=== PATIENT | female | born 1935 | race Caucasian/White ===

== ENCOUNTER 2017-07-08 15:57 | Emergency (ER) | payer OTHER ==
[~2017-07-08] VITALS: Ht 162.6 cm; Wt 67.6 kg
[2017-07-08] MEDS ORDERED: ONDANSETRON 4 MG/2 ML VIAL IV ONE (16:15)
[2017-07-08] MEDS ORDERED: HYDROMORPHONE 1 MG/1 ML DISP.SYRIN IV ONE (16:15)
[2017-07-08] MEDS ORDERED: PROTONIX PO (16:19)
[2017-07-08] MEDS ORDERED: CLOP75TA15 PO (16:19)
[2017-07-08] MEDS ORDERED: CELEXA PO (16:19)
[2017-07-08] MEDS ORDERED: INSULIN (16:19)
[2017-07-08] MEDS ORDERED: FENTANYL CITRATE 100 MCG/2 ML AMPUL IV ONE (16:30)
[2017-07-08] MEDS ORDERED: HYDROMORPHONE 1 MG/1 ML DISP.SYRIN ONE (16:33)
[2017-07-08] MEDS ORDERED: ONDANSETRON 4 MG/2 ML VIAL ONE (16:33)
[2017-07-08 16:41] LABS: BASOPHILS # (AUTO) 0.1 K/uL (0.0-8.0); BASOPHILS % (AUTO) 0.7 % (0.0-2.0); EOSINOPHILS # (AUTO) 0.1 K/uL (0.0-0.7); EOSINOPHILS % (AUTO) 1.6 % (0.0-7.0); HEMATOCRIT 35.9 % (37-47); HEMOGLOBIN 11.7 G/DL (12.0-16.0); LYMPHOCYTES # (AUTO) 1.6 K/UL (0.8-4.8); LYMPHOCYTES % (AUTO) 17.7 % (20.5-51.5); MEAN CORPUSCULAR HGB CONC 33 g/dL (32.0-37.0); MEAN CORPUSCULAR VOLUME 86.3 FL (81.0-99.0); MONOCYTES # (AUTO) 0.6 K/UL (0.1-1.30); MONOCYTES % (AUTO) 6.5 % (0.0-11.0); NEUTROPHILS # (AUTO) 6.9 K/UL (1.8-8.9); NEUTROPHILS % (AUTO) 73.5 % (38.5-71.5); RED BLOOD CELL COUNT(AUTO) 4.16 MIL/UL (4.2-5.4); WHITE BLOOD COUNT (AUTO) 9.3 K/UL (4.0-11.2)
[2017-07-08 16:42] LABS: CARBON DIOXIDE 29 mmol/L (21-32); CHLORIDE 101 mmol/L (98-107); GLUCOSE 131 mg/dL (74-106); PLATELET COUNT (AUTO) 277 K/UL (150-450); POTASSIUM 4.3 mmol/L (3.5-5.1); UREA NITROGEN, BLOOD 24 mg/dL (7-18)
[2017-07-08] MEDS ORDERED: FENTANYL CITRATE 100 MCG/2 ML AMPUL ONE (16:46)
[2017-07-08 16:47] LABS: ALANINE AMINOTRANSFERASE 36 U/L (14-59); ALKALINE PHOSPHATASE 77 U/L (50-136); ASPARTATE AMINOTRANSFERASE 23 U/L (15-37); BILIRUBIN,DIRECT 0.1 mg/dL (0.0-0.2); BILIRUBIN,TOTAL 0.7 mg/dL (0.2-1.0); TOTAL PROTEIN, SERUM 7.7 g/dL (6.4-8.2)
--- NOTE | 2017-07-08 18:50 | NUR ---
mse completed, blue called back . spoke to rep, whom stated pt to go to [facility], dr cornell accepted and [facility] to arrive at approx 1935. presenlty pt has a collie splint placed. pt staed no pain to rt knee area. transfer acknowledgement done.
--- NOTE | 2017-07-08 19:07 | NUR ---
sbar report to alex lieberman.
--- NOTE | 2017-07-08 20:24 | NUR ---
Patient Tranfers to outside Facility Physician: Dr. Calderon Location: [facility], Report given to Eros at 2020
== END 2017-07-08 20:26 | disposition short-term general hospital (02) ==
LOC: ER 15:57
DX: I21.4 Non-ST elevation (NSTEMI) myocardial infarction (principal); S80.02XA Contusion of left knee, initial encounter; S62.92XA Unspecified fracture of left hand, initial encounter for closed fracture; S00.83XA Contusion of other part of head, initial encounter; E11.9 Type 2 diabetes mellitus without complications; Z85.850 Personal history of malignant neoplasm of thyroid; Z88.0 Allergy status to penicillin; Z86.73 Personal history of transient ischemic attack (TIA), and cerebral infarction without residual deficits; Z79.4 Long term (current) use of insulin; W01.0XXA Fall on same level from slipping, tripping and stumbling without subsequent striking against object, initial encounter; Y93.89 Activity, other specified; Y92.89 Other specified places as the place of occurrence of the external cause; Y99.8 Other external cause status
CPT/HCPCS: 29125; 36415; 70450; 70486; 71010; 72125; 73110; 73130; 73564; 80048; 80076; 82962; 83605; 84484; 85025; 85730; 87040 ×2; 93005; 96374; 99291; A4663; J3010; 70030-TC; J1170; J2405